=== PATIENT | female | born 1985 | race Native Hawaiian/Other Pacific Islander ===

== ENCOUNTER 2018-07-27 22:55 | Emergency (ER) | payer OTHER ==
[2018-07-27] MEDS ORDERED: OXYCODONE-ACETAMINOPHEN 5-325 MG TABLET PO ONE (23:28)
[2018-07-27] MEDS ORDERED: NORMAL SALINE 1000 ML 1,000 ML IV ONE (23:29)
--- NOTE | 2018-07-27 23:31 | ER Document Report ---
ED Medical Screen (RME) - General Chief Complaint: Abdominal Pain Stated Complaint: ABDOMINAL CRAMPING Time Seen by Provider: 07/27/18 23:21 Notes: 32-year-old female presents with vaginal bleeding. Had a miscarriage on and her audio/visual manager at [facility] told her that in the interim if she has any active bleeding or abdominal pain to go to the emergency department. She is currently in acute distress with severe abdominal pain and states she is bleeding heavily. I have greeted and performed a rapid initial assessment of this patient. A comprehensive ED assessment and evaluation of the patient, analysis of test results and completion of medical decision making process will be conducted by an additional ED providers. TRAVEL OUTSIDE OF THE [place] IN LAST 30 DAYS: No - Related Data Allergies/Adverse Reactions: No Known Allergies Allergy (Unverified 07/27/18 22:58) Physical Exam - Respiratory Respiratory status: No respiratory distress Chest status: Nontender Breath sounds: Normal Chest palpation: Normal
--- NOTE | 2018-07-28 00:29 | ER Document Report ---
ED General - General Chief Complaint: Abdominal Pain Stated Complaint: ABDOMINAL CRAMPING Time Seen by Provider: 07/27/18 23:21 Primary Care Provider: [facility] [Provider Group] - Follow up tomorrow Notes: Patient is a 32-year-old female, that presents to the emergency department for chief complaint of vaginal bleeding and pelvic cramping. Patient states she was told she was having a miscarriage this past , was told if her pain got unbearable, over the bleeding became increased to return to the emergency department. She states that she was having some bleeding for the last few days, but the pain started getting worse today, and she described as a 10 out of 10 cramping pain bilaterally, she thinks she may have passed a clot while in the emergency department today. She thinks that the bleeding has slowed down since then, her pain is improved as well. She denies having lightheadedness, syncopal episodes, chest pain, shortness of breath, leg swelling, nausea or vomiting. Past Medical History: Hyperthyroidism Past Surgical History: Social History: Denies tobacco, alcohol or drug use. Family History: Reviewed and noncontributory for presenting illness Allergies: Reviewed, see documented allergy list. REVIEW OF SYSTEMS: Other than noted above, the 12 point review of systems was reviewed with the patient and were negative, all pertinent findings are included in the HPI. PHYSICAL EXAMINATION: Vital signs reviewed, nursing noted reviewed. GENERAL: Well-appearing, well-nourished and in no acute distress. HEAD: Atraumatic, normocephalic. EYES: Eyes appear normal, extraocular movements intact, sclera anicteric, conjunctiva are normal. ENT: nares patent, oropharynx clear without exudates. Moist mucous membranes. NECK: Normal range of motion, supple without lymphadenopathy LUNGS: Breath sounds clear to auscultation bilaterally and equal. No wheezes rales or rhonchi. HEART: Regular rate and rhythm without murmurs ABDOMEN: Soft, mild lower abdominal tenderness to palpation, normoactive bowel sounds. No rebound, guarding, or rigidity. No masses appreciated. EXTREMITIES: Nontender, good range of motion, no pitting or edema. NEUROLOGICAL: No focal neurological deficits. Moves all extremities spontaneously Motor and sensory grossly intact on exam. PSYCH: Normal mood, normal affect. SKIN: Warm, Dry, normal turgor, no rashes or lesions noted on exposed skin TRAVEL OUTSIDE OF THE [place] IN LAST 30 DAYS: No - Related Data Allergies/Adverse Reactions: No Known Allergies Allergy (Verified 07/28/18 01:21) Past Medical History - Social History Smoking Status: Never Smoker Family History: Reviewed & Not Pertinent Physical Exam - Vital signs Vitals: Pulse Ox 100 07/28/18 00:49 Course - Re-evaluation Re-evalutation: Patient seen and examined vital signs reviewed. Laboratory data and/or imaging were ordered as appropriate for the patient's presenting symptoms and complaint, with consideration of any critical or life th reatening conditions that may be associated with their obtained history and exam as noted above. Patient was treated with IV fluids Results were reviewed when available and demonstrated no anemia, transvaginal ultrasound demonstrated demise, with retained products and gestational sac, and work otherwise unremarkable The patient was re-evaluated and was stable, improved, pain was controlled, bleeding had decreased significantly Evaluation was most consistent with miscarriage, vaginal bleeding, advised follow-up with SCHEME TECHNICIAN in the morning, patient given Mandan dispense pack to take if needed for pain at home. Advised to return if her bleeding worsens significantly. Results were discussed with the patient at this point, after careful consideration I feel that that patient can be discharged from the emergency department, the patient was educated treatments and reasons to return to the emergency department based on their presumed diagnosis as noted above, they were advised to followup with a primary care physician in 2-3 days. Patient was agreeable to plan of care. *Note is created using voice recognition software and may contain spelling, syntax or grammatical errors. Laboratory 07/28/18 07/28/18 07/28/18 00:09 00:09 00:09 WBC 11.0 H RBC 4.16 Hgb 12.7 Hct 38.0 MCV 91 MCH 30.6 MCHC 33.5 RDW 14.2 H Plt Count 234 Seg Neutrophils % 84.6 H Lymphocytes % 10.7 L Monocytes % 4.1 Eosinophils % 0.3 Basophils % 0.3 Absolute Neutrophils 9.3 H Absolute Lymphocytes 1.2 Absolute Monocytes 0.4 Absolute Eosinophils 0.0 Absolute Basophils 0.0 Sodium 138.7 Potassium 4.0 Chloride 104 Carbon Dioxide 25 Anion Gap 10 BUN 15 Creatinine 0.44 L Est GFR ( Amer) > 60 Est GFR (Non-Af Amer) > 60 Glucose 158 H Calcium 9.4 Total Bilirubin 0.3 Direct Bilirubin 0.2 Neonat Total Bilirubin Not Reportable Neonat Direct Bilirubin Not Reportable Neonat Indirect Bili Not Reportable AST 48 H ALT 87 H Alkaline Phosphatase 77 Total Protein 7.7 Albumin 4.4 Blood Type B POSITIVE Antibody Screen NEGATIVE Rhogam Indicated RHOGAM NOT INDICATED Transvaginal US 07/27/18 23:21 IMPRESSION: Abnormal appearing intrauterine gestational sac, in the lower uterine segment with visible pole but no detectable heart tones. Findings are concerning for demise. Continued close obstetric follow-up recommended. copyright 2010 [employer]- All Rights Reserved - Vital Signs Vital signs: Temp Pulse Resp BP Pulse Ox 98.3 F 15 100/73 97 07/28/18 02:24 07/28/18 02:24 07/28/18 02:24 07/28/18 02:24 - Laboratory Result Diagrams: 07/28/18 00:09 07/28/18 00:09 Laboratory results interpreted by me: 07/28/18 07/28/18 00:09 00:09 WBC 11.0 H RDW 14.2 H Seg Neutrophils % 84.6 H Lymphocytes % 10.7 L Absolute Neutrophils 9.3 H Creatinine 0.44 L Glucose 158 H AST 48 H ALT 87 H - EKG Interpretation by Me Additional EKG results interpreted by me: EKG demonstrates sinus rhythm with a ventricular rate of 80 bpm, borderline right axis deviation, QTC 457 mg seconds, no ST elevation. Discharge - Discharge Clinical Impression: Miscarriage Condition: Stable Disposition: HOME, SELF-CARE Instructions: Miscarriage (OM) Additional Instructions: Please follow-up with your appointment today, to decide whether you need a D&C, or medication. If your bleeding gets worse in the meantime, you may return to the emergency department again to be reevaluated. Referrals: [facility] [Provider Group] - Follow up tomorrow
[2018-07-28 00:32] LABS: ABSOLUTE LYMPHOCYTES (AUTO) 1.2 10^3/uL (0.5-4.7); ABSOLUTE MONOCYTES (AUTO) 0.4 10^3/uL (0.1-1.4); ABSOLUTE NEUT (AUTO) 9.3 10^3/uL (1.7-8.2); BASOPHILS % (AUTO) 0.3 % (0-2); EOSINOPHILS % (AUTO) 0.3 % (0-6); HEMOGLOBIN 12.7 g/dL (12.0-15.5); LYMPHOCYTES % (AUTO) 10.7 % (13-45); MEAN CORPUSCULAR HEMOGLOBIN 30.6 pg (27.0-33.4); MEAN CORPUSCULAR HGB CONC 33.5 g/dL (32.0-36.0); MEAN CORPUSCULAR VOLUME 91 fl (80-97); MONOCYTES % (AUTO) 4.1 % (3-13); PLATELET COUNT 234 10^3/uL (150-450); RED BLOOD COUNT 4.16 10^6/uL (3.72-5.28); RED CELL DISTRIBUTION WIDTH 14.2 % (11.5-14.0); SEGMENTED NEUTROPHILS % (AUTO) 84.6 % (42-78); TOTAL CELLS COUNTED % (AUTO) 100 %
[2018-07-28 00:48] LABS: ALANINE AMINOTRANSFERASE 87 U/L (9-52); ALBUMIN 4.4 g/dL (3.5-5.0); ALKALINE PHOSPHATASE 77 U/L (38-126); ANION GAP 10 (5-19); ASPARTATE AMINO TRANSFERASE 48 U/L (14-36); BILIRUBIN,DIRECT 0.2 mg/dL (0.0-0.4); BILIRUBIN,TOTAL 0.3 mg/dL (0.2-1.3); BLOOD UREA NITROGEN 15 mg/dL (7-20); CALCIUM 9.4 mg/dL (8.4-10.2); CARBON DIOXIDE 25 mmol/L (22-30); CHLORIDE 104 mmol/L (98-107); GLUCOSE 158 mg/dL (75-110); SODIUM 138.7 mmol/L (137-145); TOTAL PROTEIN 7.7 g/dL (6.3-8.2)
--- NOTE | 2018-07-28 01:50 | RADIOLOGY REPORT (SQ) ---
EXAM DESCRIPTION: US TRANSVAGINAL COMPLETED DATE/TME: 07/27/2018 23:21 CLINICAL HISTORY: 32 years, Female, miscarriage COMPARISON: None. TECHNIQUE: Transverse and longitudinal transvaginal sonographic images of the pelvis LIMITATIONS: None. FINDINGS: The uterus measures 12.9 x 5.7 x 5.6 cm. There is a single, intrauterine gestational sac with pole. However, there are no detectable heart tones. The gestational sac is in the lower uterine segment and has an irregular appearance. Current ultrasound age is 8 weeks 0 days based on a mean crown-rump length of 1.61 cm. The right ovary measures 2 x 2 x 3 cm, the left ovary is not well seen likely due to its position in the pelvis. Normal flow to the right ovary. No adnexal cyst or mass. No free fluid.. IMPRESSION: Abnormal appearing intrauterine gestational sac, in the lower uterine segment with visible pole but no detectable heart tones. Findings are concerning for demise. Continued close obstetric follow-up recommended. copyright 2010 [employer]- All Rights Reserved
[2018-07-28] MEDS ORDERED: HYDROCODONE/ACETAMINOPHEN 5-325 MG (6 TAB/ER DISP) PO PRN (02:08)
[2018-07-28 02:26] VITALS: BP 100/73
--- NOTE | 2018-07-28 07:20 | EKG REPORT ---
SEVERITY:- BORDERLINE ECG - SINUS RHYTHM BORDERLINE RIGHT AXIS DEVIATION NONSPECIFIC ST-T CHANGES ANTEROSEPTAL LEADS : Confirmed by: Sunil Alonzo MD 28-Jul-2018 07:19:55
== END 2018-07-28 02:39 | disposition home or self-care (01) ==
LOC: ER 22:55
DX: O03.9 Complete or unspecified spontaneous abortion without complication (principal); R10.9 Unspecified abdominal pain; R10.2 Pelvic and perineal pain
CPT/HCPCS: 93005; 99284; 96360; 86900; 86901; 36415; 86850; 85025; 80053; 76817; 93976; 93010; J7030